=== PATIENT | female | born 1925 | race Caucasian/White ===

== ENCOUNTER 2016-06-11 18:35 | Inpatient (IN) | payer MEDICARE, MEDICAID ==
[~2016-06-11] VITALS: Ht 162.6 cm; Wt 95.2 kg
[~2016-06-11 18:35] MED LIST: AMLO10TA2 PO; AMLO5TAB4 PO; APIX5TAB PO; BUME1TAB21 PO; CEFT1FRO2 IV; DIGO125T PO; DRON5CAP15 PO; ERGO500017 PO; FENO145T32 PO; FURO-92 PO; FURO-93 PO; GUAI600T22 PO; HYDR-3240 PO; HYDR25TA6 PO; Initiate Coumadin Protocol MC; LEVO125T PO; LEVO750T26 PO; LEVO75TA PO; LISI-167 PO; LISI-170 PO; LISI40TA PO; METO25TA9 PO; METO50TA82 PO; OXYC1TAB7 PO; POTA10TA11 PO; POTA10TA5 PO; POTA20TA6 PO; PRAV40TA2 PO; PRED20TA PO; RIVA10TA PO; SPIR25TA PO; VANC125C2 PO; VANC1VIA3 PO; WARF3TAB PO
[2016-06-11] MEDS ORDERED: PIPERACILLIN/TAZO/PMX 3.375GM 50 ML ONE (19:28)
[2016-06-11] MEDS ORDERED: SODIUM CHLORIDE FLUSH 10ML SYR IVF ONE (19:30)
[2016-06-11] MEDS ORDERED: SODIUM CHLORIDE 0.9% 1,000ML IVBOLUS ONE ×3 (19:30→21:30)
[2016-06-11] MEDS ORDERED: PIPERACILLIN/TAZO/PMX 3.375GM 50 ML IV ONE (19:30)
[2016-06-11 20:02] LABS: ASPARTATE AMINO TRANSFERASE 16 U/L (15-37); BLOOD UREA NITROGEN 42 mg/dL (7-18)
[2016-06-11 20:10] LABS: IS PT STATUS REG ER OR PRE ER? YES
[2016-06-11 20:17] LABS: DIFF TOTAL CELLS COUNTED 200 CELL DIFF; VERIFY COUNTS? YES
[2016-06-11 20:18] LABS: ANISOCYTOSIS 1+; POLYCHROMASIA 1+
[2016-06-11 20:19] LABS: MONOS WITH VACUOLES 1+
[2016-06-11] MEDS ORDERED: ONDANSETRON 2MG/ML, 2ML IVP PRN (22:30)
[2016-06-11 23:30] VITALS: BP 99/51
[2016-06-12] MEDS: SODIUM CHLORIDE 0.9% 1,000 ML IV SCH ×3 (00:02→22:39)
[2016-06-12] MEDS: metroNIDAZOLE 500 MG TABLET PO SCH ×4 (00:03→20:18)
[2016-06-12] MEDS: PRAVASTATIN 40 MG TABLET PO SCH ×2 (00:03→20:18)
[2016-06-12] MEDS: VANCOMYCIN 50 MG/ML ORAL SUSP PO SCH ×5 (00:03→22:38)
[2016-06-12 00:59] VITALS: BP 109/50
[2016-06-12] MEDS: LEVOTHYROXINE 125 MCG TABLET PO SCH (05:06)
[2016-06-12 06:58] LABS: ASPARTATE AMINO TRANSFERASE 16 U/L (15-37); BLOOD UREA NITROGEN 40 mg/dL (7-18)
[2016-06-12 07:34] LABS: DIFF TOTAL CELLS COUNTED 100 CELL DIFF
[2016-06-12 07:37] LABS: ANISOCYTOSIS 1+; VERIFY COUNTS? YES
[2016-06-12 07:38] LABS: MONOS WITH VACUOLES 1+; POLYCHROMASIA 1+
[2016-06-12] MEDS: DIGOXIN 0.125 MG TABLET PO SCH (07:44)
[2016-06-12 08:16] VITALS: BP 91/55
[2016-06-12] MEDS ORDERED: WARFARIN 3 MG TABLET PO-COUM SCH ×2 (09:00→18:00)
[2016-06-12 11:07] VITALS: BP 108/53
[2016-06-12] MEDS ORDERED: METOPROLOL TARTRATE 25 MG TABLET PO ONE (11:30)
[2016-06-12] MEDS: ACETAMINOPHEN 325 MG TABLET PO PRN (11:33)
[2016-06-12] MEDS: MORPHINE SULFATE 4 MG/ML, 1ML IVPush PRN ×3 (13:14→22:38)
[2016-06-12 13:15] VITALS: BP 97/54
[2016-06-12] MEDS ORDERED: MORPHINE SULFATE 4 MG/ML, 1ML IVPush PRN (13:30)
[2016-06-12 20:09] VITALS: BP 101/57
[2016-06-12] MEDS: METOPROLOL SUCCINATE 25 MG TAB.ER.24H PO SCH (20:18)
[2016-06-13] VITALS (7 sets, daily range): BP systolic 90–116; BP diastolic 40–62
[2016-06-13] MEDS: LEVOTHYROXINE 125 MCG TABLET PO SCH (05:08)
[2016-06-13] MEDS: SODIUM CHLORIDE 0.9% 1,000 ML IV SCH ×2 (05:08→11:50)
[2016-06-13] MEDS: VANCOMYCIN 50 MG/ML ORAL SUSP PO SCH ×4 (05:08→22:43)
[2016-06-13 06:14] LABS: ASPARTATE AMINO TRANSFERASE 17 U/L (15-37); BLOOD UREA NITROGEN 42 mg/dL (7-18)
[2016-06-13 06:30] LABS: DIFF TOTAL CELLS COUNTED 100 CELL DIFF
[2016-06-13 06:32] LABS: VERIFY COUNTS? YES
[2016-06-13 06:33] LABS: ANISOCYTOSIS 1+; POLYCHROMASIA 1+; SCHISTOCYTES 1+
[2016-06-13 06:34] LABS: OVALOCYTES 1+
[2016-06-13] MEDS: DIGOXIN 0.125 MG TABLET PO SCH (08:22)
[2016-06-13] MEDS: METOPROLOL SUCCINATE 25 MG TAB.ER.24H PO SCH ×2 (08:22→19:59)
[2016-06-13] MEDS: metroNIDAZOLE 500 MG TABLET PO SCH (08:22)
[2016-06-13] MEDS: ACETAMINOPHEN 325 MG TABLET PO PRN (10:49)
[2016-06-13] MEDS: MORPHINE SULFATE 4 MG/ML, 1ML IVPush PRN (12:46)
[2016-06-13] MEDS ORDERED: LACTATED RINGERS 1,000 ML IV SCH (13:00)
[2016-06-13] MEDS: METRONIDAZOLE PMX 500MG/100ML 100 ML IV SCH ×2 (16:37→23:59)
[2016-06-13] MEDS: PRAVASTATIN 40 MG TABLET PO SCH (19:59)
[2016-06-14 02:06] VITALS: BP 137/59
[2016-06-14] MEDS: MORPHINE SULFATE 4 MG/ML, 1ML IVPush PRN ×3 (03:38→18:11)
[2016-06-14] MEDS: LEVOTHYROXINE 125 MCG TABLET PO SCH (05:52)
[2016-06-14] MEDS: VANCOMYCIN 50 MG/ML ORAL SUSP PO SCH ×3 (05:52→18:11)
[2016-06-14 06:33] LABS: BLOOD UREA NITROGEN 45 mg/dL (7-18)
[2016-06-14 06:34] LABS: ASPARTATE AMINO TRANSFERASE 9 U/L (15-37)
[2016-06-14 06:42] LABS: DIFF TOTAL CELLS COUNTED 100 CELL DIFF
[2016-06-14 06:43] LABS: ANISOCYTOSIS 1+; VERIFY COUNTS? YES
[2016-06-14 06:44] LABS: POLYCHROMASIA 1+
[2016-06-14 07:21] VITALS: BP 133/53
[2016-06-14] MEDS: METRONIDAZOLE PMX 500MG/100ML 100 ML IV SCH ×2 (10:14→18:11)
[2016-06-14] MEDS: DIGOXIN 0.125 MG TABLET PO SCH (10:52)
[2016-06-14] MEDS: METOPROLOL SUCCINATE 25 MG TAB.ER.24H PO SCH ×2 (10:52→21:55)
[2016-06-14 13:47] VITALS: BP 95/66
[2016-06-14 21:50] VITALS: BP 114/76
[2016-06-14] MEDS: PRAVASTATIN 40 MG TABLET PO SCH (21:55)
[2016-06-15] MEDS: VANCOMYCIN 50 MG/ML ORAL SUSP PO SCH ×4 (01:30→18:52)
[2016-06-15] MEDS: METRONIDAZOLE PMX 500MG/100ML 100 ML IV SCH ×3 (01:31→20:03)
[2016-06-15 01:32] VITALS: BP 92/64
[2016-06-15 06:16] LABS: DIFF TOTAL CELLS COUNTED 100 CELL DIFF
[2016-06-15 06:17] LABS: ANISOCYTOSIS 1+; VERIFY COUNTS? YES
[2016-06-15 06:18] LABS: POLYCHROMASIA 1+
[2016-06-15] MEDS: LEVOTHYROXINE 125 MCG TABLET PO SCH (06:22)
[2016-06-15 06:51] LABS: BLOOD UREA NITROGEN 48 mg/dL (7-18)
[2016-06-15 07:55] VITALS: BP 89/49
[2016-06-15] MEDS: SODIUM CHLORIDE 0.9% 1,000 ML IV SCH ×2 (10:19→20:03)
[2016-06-15 10:20] VITALS: BP 100/65
[2016-06-15] MEDS: METOPROLOL SUCCINATE 25 MG TAB.ER.24H PO SCH ×2 (10:20→20:52)
[2016-06-15] MEDS: MORPHINE SULFATE 4 MG/ML, 1ML IVPush PRN (10:22)
[2016-06-15 12:32] VITALS: BP 108/70
[2016-06-15] MEDS ORDERED: ALBUMIN HUMAN 25% 100 ML IV ONE (13:30)
[2016-06-15] MEDS ORDERED: PHYTONADIONE 5 MG TABLET PO ONE (16:00)
[2016-06-15 20:51] VITALS: BP 93/61
[2016-06-15] MEDS: PRAVASTATIN 40 MG TABLET PO SCH (20:52)
[2016-06-16] MEDS: VANCOMYCIN 50 MG/ML ORAL SUSP PO SCH ×4 (00:37→17:20)
[2016-06-16] MEDS: MORPHINE SULFATE 4 MG/ML, 1ML IVPush PRN ×4 (00:45→23:06)
[2016-06-16 01:56] VITALS: BP 93/62
[2016-06-16] MEDS: METRONIDAZOLE PMX 500MG/100ML 100 ML IV SCH ×3 (04:11→20:06)
[2016-06-16 05:47] LABS: BLOOD UREA NITROGEN 52 mg/dL (7-18)
[2016-06-16] MEDS: LEVOTHYROXINE 125 MCG TABLET PO SCH (05:58)
[2016-06-16 06:44] LABS: DIFF TOTAL CELLS COUNTED 100 CELL DIFF
[2016-06-16 06:49] LABS: ANISOCYTOSIS 1+; OVALOCYTES 1+; POIKILOCYTOSIS 1+; POLYCHROMASIA 1+; VERIFY COUNTS? YES
[2016-06-16 08:43] VITALS: BP 83/62
[2016-06-16] MEDS: METOPROLOL SUCCINATE 25 MG TAB.ER.24H PO SCH ×2 (09:00→20:07)
[2016-06-16] MEDS: SODIUM CHLORIDE 0.9% 1,000 ML IV SCH (09:00)
[2016-06-16 09:25] VITALS: BP 97/65
[2016-06-16] MEDS ORDERED: ALBUMIN HUMAN 25% 100 ML IV ONE (10:00)
[2016-06-16] MEDS: SODIUM BICARB 8.4%,50ML SYR. 75 MEQ in SODIUM CHLORIDE 0.45% 1,000 ML IV SCH ×2 (12:55→20:00)
[2016-06-16 13:07] LABS: PTH INTACT INTERPRETATION ** Comment **
[2016-06-16 13:31] LABS: PARATHYROID HORMONE INTACT 267.2 pg/mL (14-72)
[2016-06-16 13:45] VITALS: BP 87/52
[2016-06-16 15:16] LABS: POTASSIUM,URINE RANDOM 23 mmol/L
[2016-06-16 15:39] VITALS: BP 97/60
[2016-06-16 18:52] VITALS: BP 98/59
[2016-06-16] MEDS: PRAVASTATIN 40 MG TABLET PO SCH (20:06)
[2016-06-16] MEDS: MIRTAZAPINE 15 MG TABLET PO SCH (20:07)
[2016-06-17] MEDS: VANCOMYCIN 50 MG/ML ORAL SUSP PO SCH ×4 (00:51→18:04)
[2016-06-17 02:00] VITALS: BP 86/55
[2016-06-17] MEDS: SODIUM BICARB 8.4%,50ML SYR. 75 MEQ in SODIUM CHLORIDE 0.45% 1,000 ML IV SCH (04:26)
[2016-06-17] MEDS: METRONIDAZOLE PMX 500MG/100ML 100 ML IV SCH ×3 (04:26→20:27)
[2016-06-17 05:37] LABS: ASPARTATE AMINO TRANSFERASE 17 U/L (15-37); BLOOD UREA NITROGEN 48 mg/dL (7-18)
[2016-06-17] MEDS: LEVOTHYROXINE 125 MCG TABLET PO SCH (05:43)
[2016-06-17 06:48] LABS: DIFF TOTAL CELLS COUNTED 100 CELL DIFF
[2016-06-17 06:51] LABS: ANISOCYTOSIS 1+; POLYCHROMASIA 1+; VERIFY COUNTS? YES
[2016-06-17 06:52] LABS: OVALOCYTES 1+; POIKILOCYTOSIS 1+
[2016-06-17 07:06] VITALS: BP 93/63
[2016-06-17] MEDS: METOPROLOL SUCCINATE 25 MG TAB.ER.24H PO SCH ×2 (07:41→20:27)
[2016-06-17] MEDS: MORPHINE SULFATE 4 MG/ML, 1ML IVPush PRN (10:21)
[2016-06-17 13:18] VITALS: BP 96/70
[2016-06-17] MEDS: WARFARIN 3 MG TABLET PO-COUM SCH (18:03)
[2016-06-17 18:51] VITALS: BP 85/51
[2016-06-17 20:27] VITALS: BP 95/66
[2016-06-17] MEDS: PRAVASTATIN 40 MG TABLET PO SCH (20:27)
[2016-06-17] MEDS: MIRTAZAPINE 15 MG TABLET PO SCH (20:27)
[2016-06-18 00:17] VITALS: BP 95/67
[2016-06-18] MEDS: VANCOMYCIN 50 MG/ML ORAL SUSP PO SCH ×4 (00:43→18:11)
[2016-06-18] MEDS: METRONIDAZOLE PMX 500MG/100ML 100 ML IV SCH ×3 (04:05→20:02)
[2016-06-18] MEDS: LEVOTHYROXINE 125 MCG TABLET PO SCH (05:34)
[2016-06-18 05:49] LABS: BLOOD UREA NITROGEN 43 mg/dL (7-18)
[2016-06-18 07:52] LABS: DIFF TOTAL CELLS COUNTED 100 CELL DIFF
[2016-06-18 07:54] LABS: VERIFY COUNTS? YES
[2016-06-18 07:55] LABS: ANISOCYTOSIS 1+; POLYCHROMASIA 1+
[2016-06-18 08:18] VITALS: BP 95/64
[2016-06-18] MEDS: METOPROLOL SUCCINATE 25 MG TAB.ER.24H PO SCH ×2 (08:18→20:02)
[2016-06-18 14:23] VITALS: BP 98/54
[2016-06-18] MEDS: WARFARIN 3 MG TABLET PO-COUM SCH (18:11)
[2016-06-18 19:46] VITALS: BP 97/56
[2016-06-18] MEDS: MIRTAZAPINE 15 MG TABLET PO SCH (20:02)
[2016-06-18] MEDS: PRAVASTATIN 40 MG TABLET PO SCH (20:02)
[2016-06-19] MEDS: VANCOMYCIN 50 MG/ML ORAL SUSP PO SCH ×4 (00:25→18:26)
[2016-06-19 01:13] VITALS: BP 120/40
[2016-06-19] MEDS: METRONIDAZOLE PMX 500MG/100ML 100 ML IV SCH ×3 (03:33→20:20)
[2016-06-19] MEDS: LEVOTHYROXINE 125 MCG TABLET PO SCH (05:36)
[2016-06-19 05:42] LABS: BLOOD UREA NITROGEN 42 mg/dL (7-18)
[2016-06-19 06:13] LABS: DIFF TOTAL CELLS COUNTED 100 CELL DIFF
[2016-06-19 06:16] LABS: ANISOCYTOSIS 1+; VERIFY COUNTS? YES
[2016-06-19 06:17] LABS: POLYCHROMASIA 1+
[2016-06-19 07:45] VITALS: BP 81/53
[2016-06-19] MEDS: METOPROLOL SUCCINATE 25 MG TAB.ER.24H PO SCH (09:00)
[2016-06-19 09:05] VITALS: BP 91/53
[2016-06-19 10:42] VITALS: BP 103/68
[2016-06-19] MEDS ORDERED: SODIUM CHLORIDE 0.9%, 250ML IVBOLUS ONE (12:00)
[2016-06-19 14:15] VITALS: BP 101/67
[2016-06-19] MEDS: SODIUM CHLORIDE 0.9% 1,000 ML IV SCH (16:55)
[2016-06-19] MEDS: HYDROCORTISONE 100 MG INJ. IVPush SCH ×2 (16:55→23:41)
[2016-06-19] MEDS ORDERED: WARFARIN 2.5 MG TABLET PO-COUM ONE (18:00)
[2016-06-19 18:56] VITALS: BP 103/67
[2016-06-19] MEDS: MIRTAZAPINE 15 MG TABLET PO SCH (20:20)
[2016-06-19] MEDS: PRAVASTATIN 40 MG TABLET PO SCH (20:21)
[2016-06-20] MEDS: VANCOMYCIN 50 MG/ML ORAL SUSP PO SCH ×4 (00:05→17:32)
[2016-06-20 02:09] VITALS: BP 92/55
[2016-06-20] MEDS: SODIUM CHLORIDE 0.9% 1,000 ML IV SCH ×2 (03:52→15:43)
[2016-06-20] MEDS: METRONIDAZOLE PMX 500MG/100ML 100 ML IV SCH ×3 (03:52→19:53)
[2016-06-20] MEDS: LEVOTHYROXINE 125 MCG TABLET PO SCH (05:39)
[2016-06-20] MEDS: HYDROCORTISONE 100 MG INJ. IVPush SCH ×3 (05:39→17:32)
[2016-06-20 06:01] LABS: ASPARTATE AMINO TRANSFERASE 17 U/L (15-37); BLOOD UREA NITROGEN 44 mg/dL (7-18)
[2016-06-20 07:33] VITALS: BP 104/77
[2016-06-20 13:44] VITALS: BP 109/70
[2016-06-20] MEDS: PRAVASTATIN 40 MG TABLET PO SCH (19:59)
[2016-06-20] MEDS: MIRTAZAPINE 15 MG TABLET PO SCH (19:59)
[2016-06-20 20:29] VITALS: BP 136/80
[2016-06-21] MEDS: HYDROCORTISONE 100 MG INJ. IVPush SCH ×5 (00:02→23:13)
[2016-06-21] MEDS: VANCOMYCIN 50 MG/ML ORAL SUSP PO SCH ×4 (00:02→17:44)
[2016-06-21 01:29] VITALS: BP 134/79
[2016-06-21] MEDS: METRONIDAZOLE PMX 500MG/100ML 100 ML IV SCH ×3 (04:29→20:14)
[2016-06-21] MEDS: SODIUM CHLORIDE 0.9% 1,000 ML IV SCH ×2 (04:33→17:05)
[2016-06-21 05:40] LABS: BLOOD UREA NITROGEN 49 mg/dL (7-18)
[2016-06-21] MEDS ORDERED: PHYTONADIONE 5 MG TABLET PO ONE (06:00)
[2016-06-21] MEDS: LEVOTHYROXINE 125 MCG TABLET PO SCH (06:04)
[2016-06-21 07:41] VITALS: BP 130/86
[2016-06-21] MEDS: METOPROLOL TARTRATE 25 MG TABLET PO SCH ×2 (10:49→20:15)
[2016-06-21 12:30] VITALS: BP 118/88
[2016-06-21 19:26] VITALS: BP 130/84
[2016-06-21] MEDS: SODIUM BICARBONATE 650 MG TABLET PO SCH (20:15)
[2016-06-21] MEDS: PRAVASTATIN 40 MG TABLET PO SCH (20:15)
[2016-06-21] MEDS: MIRTAZAPINE 15 MG TABLET PO SCH (20:15)
[2016-06-21] MEDS: DRONABINOL 5 MG CAPSULE PO SCH (20:18)
[2016-06-22] MEDS: VANCOMYCIN 50 MG/ML ORAL SUSP PO SCH ×4 (00:51→17:50)
[2016-06-22 01:37] VITALS: BP 119/79
[2016-06-22] MEDS: METRONIDAZOLE PMX 500MG/100ML 100 ML IV SCH ×2 (03:55→13:11)
[2016-06-22] MEDS: LEVOTHYROXINE 125 MCG TABLET PO SCH (05:47)
[2016-06-22] MEDS: HYDROCORTISONE 100 MG INJ. IVPush SCH ×3 (05:52→22:20)
[2016-06-22] MEDS: SODIUM CHLORIDE 0.9% 1,000 ML IV SCH ×2 (05:53→17:56)
[2016-06-22 07:30] LABS: BLOOD UREA NITROGEN 51 mg/dL (7-18)
[2016-06-22 08:01] LABS: DIFF TOTAL CELLS COUNTED 100 CELL DIFF
[2016-06-22 08:05] LABS: ANISOCYTOSIS 1+; VERIFY COUNTS? YES
[2016-06-22 09:15] VITALS: BP 130/75
[2016-06-22] MEDS: DRONABINOL 5 MG CAPSULE PO SCH ×2 (09:45→22:21)
[2016-06-22] MEDS: SODIUM BICARBONATE 650 MG TABLET PO SCH ×2 (09:45→22:21)
[2016-06-22] MEDS: METOPROLOL TARTRATE 25 MG TABLET PO SCH ×2 (09:45→22:21)
[2016-06-22 10:23] LABS: OCCBLD OBC PASS
[2016-06-22 15:36] VITALS: BP 129/84
[2016-06-22] MEDS ORDERED: WARFARIN 1 MG TABLET PO-COUM SCH (18:00)
[2016-06-22 19:34] VITALS: BP 104/66
[2016-06-22] MEDS: MIRTAZAPINE 15 MG TABLET PO SCH (22:21)
[2016-06-22] MEDS: PRAVASTATIN 40 MG TABLET PO SCH (22:21)
[2016-06-22] MEDS: MORPHINE SULFATE 4 MG/ML, 1ML IVPush PRN (22:47)
[2016-06-23 01:06] VITALS: BP 115/75
[2016-06-23] MEDS: VANCOMYCIN 50 MG/ML ORAL SUSP PO SCH ×4 (01:22→18:47)
[2016-06-23 04:54] LABS: BLOOD UREA NITROGEN 59 mg/dL (7-18)
[2016-06-23 05:27] LABS: DIFF TOTAL CELLS COUNTED 100 CELL DIFF
[2016-06-23 05:28] LABS: VERIFY COUNTS? YES
[2016-06-23 05:29] LABS: ANISOCYTOSIS 1+; OVALOCYTES 1+; POIKILOCYTOSIS 1+
[2016-06-23 05:30] LABS: ECHINOCYTES 1+
[2016-06-23 05:31] LABS: MONOS WITH VACUOLES 1+
[2016-06-23] MEDS: LEVOTHYROXINE 125 MCG TABLET PO SCH (05:40)
[2016-06-23 06:56] VITALS: BP 121/85
[2016-06-23] MEDS: SODIUM CHLORIDE 0.9% 1,000 ML IV SCH (08:20)
[2016-06-23] MEDS: METOPROLOL TARTRATE 25 MG TABLET PO SCH ×2 (08:46→20:58)
[2016-06-23] MEDS: SODIUM BICARBONATE 650 MG TABLET PO SCH ×2 (08:47→20:58)
[2016-06-23] MEDS: HYDROCORTISONE 100 MG INJ. IVPush SCH ×2 (08:49→20:58)
[2016-06-23] MEDS: DRONABINOL 5 MG CAPSULE PO SCH (08:49)
[2016-06-23 13:49] VITALS: BP 115/66
[2016-06-23 14:43] VITALS: BP 105/70
[2016-06-23] MEDS ORDERED: FUROSEMIDE 40 MG/4 ML IV ONE (15:00)
[2016-06-23] MEDS ORDERED: WARFARIN 1 MG TABLET PO-COUM SCH (18:00)
[2016-06-23 18:45] VITALS: BP 109/70
[2016-06-23 20:37] VITALS: BP 126/61
[2016-06-23] MEDS: MIRTAZAPINE 15 MG TABLET PO SCH (20:59)
[2016-06-24] VITALS (8 sets, daily range): BP systolic 100–128; BP diastolic 59–84
[2016-06-24] MEDS: PRAVASTATIN 40 MG TABLET PO SCH ×2 (01:27→22:02)
[2016-06-24] MEDS: VANCOMYCIN 50 MG/ML ORAL SUSP PO SCH ×4 (01:27→22:02)
[2016-06-24 06:10] LABS: BLOOD UREA NITROGEN 65 mg/dL (7-18)
[2016-06-24 06:33] LABS: DIFF TOTAL CELLS COUNTED 100 CELL DIFF
[2016-06-24 06:34] LABS: ANISOCYTOSIS 1+; VERIFY COUNTS? YES
[2016-06-24 06:36] LABS: POLYCHROMASIA 1+
[2016-06-24] MEDS: LEVOTHYROXINE 125 MCG TABLET PO SCH (09:06)
[2016-06-24] MEDS: METOPROLOL TARTRATE 25 MG TABLET PO SCH ×2 (09:06→21:00)
[2016-06-24] MEDS: SODIUM BICARBONATE 650 MG TABLET PO SCH ×2 (09:06→18:22)
[2016-06-24] MEDS: HYDROCORTISONE 100 MG INJ. IVPush SCH (09:07)
[2016-06-24] MEDS ORDERED: PANTOPRAZOLE 80 MG in SODIUM CHLORIDE 0.9% 50 ML IV ONE (17:30)
[2016-06-24] MEDS ORDERED: FUROSEMIDE 40 MG/4 ML IV ONE (19:00)
[2016-06-24] MEDS ORDERED: HYDROCORTISONE 100 MG INJ. IVPush SCH (21:00)
[2016-06-24] MEDS: MIRTAZAPINE 15 MG TABLET PO SCH (22:02)
[2016-06-25] VITALS (22 sets, daily range): BP systolic 93–122; BP diastolic 50–90
[2016-06-25] MEDS: PANTOPRAZOLE 80 MG in SODIUM CHLORIDE 0.9% 100 ML IV SCH ×2 (00:05→17:32)
[2016-06-25] MEDS: VANCOMYCIN 50 MG/ML ORAL SUSP PO SCH ×4 (04:37→23:53)
[2016-06-25 06:27] LABS: ASPARTATE AMINO TRANSFERASE 36 U/L (15-37); BLOOD UREA NITROGEN 66 mg/dL (7-18)
[2016-06-25] MEDS: LEVOTHYROXINE 125 MCG TABLET PO SCH (06:46)
[2016-06-25] MEDS: METOPROLOL TARTRATE 25 MG TABLET PO SCH ×2 (09:00→22:06)
[2016-06-25] MEDS ORDERED: CEFTRIAXONE PMX 1GM/50ML 50 ML IV SCH (09:00)
[2016-06-25] MEDS ORDERED: HYDROCORTISONE 100 MG INJ. IVPush SCH (09:00)
[2016-06-25] MEDS: SODIUM BICARBONATE 650 MG TABLET PO SCH ×3 (09:12→17:31)
[2016-06-25] MEDS: FUROSEMIDE 20 MG/2 ML IV SCH ×2 (11:35→22:06)
[2016-06-25] MEDS: MIRTAZAPINE 15 MG TABLET PO SCH (22:06)
[2016-06-25] MEDS: PRAVASTATIN 40 MG TABLET PO SCH (22:06)
[2016-06-26] VITALS (8 sets, daily range): BP systolic 113–136; BP diastolic 70–87
[2016-06-26] MEDS: PANTOPRAZOLE 80 MG in SODIUM CHLORIDE 0.9% 100 ML IV SCH ×2 (03:37→13:30)
[2016-06-26] MEDS: LEVOTHYROXINE 125 MCG TABLET PO SCH (06:04)
[2016-06-26] MEDS: VANCOMYCIN 50 MG/ML ORAL SUSP PO SCH ×3 (06:05→22:27)
[2016-06-26 06:25] LABS: BLOOD UREA NITROGEN 58 mg/dL (7-18)
[2016-06-26 07:01] LABS: DIFF TOTAL CELLS COUNTED 100 CELL DIFF
[2016-06-26 07:04] LABS: VERIFY COUNTS? YES
[2016-06-26 07:05] LABS: ANISOCYTOSIS 1+; ECHINOCYTES 1+; OVALOCYTES 1+; POIKILOCYTOSIS 1+; POLYCHROMASIA 1+
[2016-06-26] MEDS: SODIUM BICARBONATE 650 MG TABLET PO SCH ×3 (08:00→17:00)
[2016-06-26] MEDS ORDERED: DEXTROSE 5% 1,000 ML IV SCH (10:00)
[2016-06-26] MEDS ORDERED: PHARMACY MAY ADJ FOR RENAL FX MC PRN ×2 (10:30→17:00)
[2016-06-26] MEDS ORDERED: VANCOMYCIN PER PHARMACY MC PRN (10:30)
[2016-06-26] MEDS ORDERED: PHARMACOKINETIC CONSULTATION MC ONE (11:00)
[2016-06-26] MEDS ORDERED: VANCOMYCIN 1,900 MG in SODIUM CHLORIDE 0.9% 250 ML IV SCH (11:00)
[2016-06-26] MEDS ORDERED: PHARMACOKINETIC MONITORING MC PRN (11:00)
[2016-06-26] MEDS: PIPERACILLIN/TAZO/PMX 3.375GM 50 ML IV SCH ×2 (13:23→22:26)
[2016-06-26] MEDS: METOPROLOL TARTRATE 25 MG TABLET PO SCH ×2 (13:24→22:26)
[2016-06-26] MEDS: FUROSEMIDE 20 MG/2 ML IV SCH ×2 (13:37→22:28)
[2016-06-26 18:54] LABS: DIFF TOTAL CELLS COUNTED 100 CELL DIFF
[2016-06-26 18:56] LABS: ANISOCYTOSIS 1+; POLYCHROMASIA 1+; VERIFY COUNTS? YES
[2016-06-26 18:57] LABS: MICROCYTOSIS 1+
[2016-06-26 18:58] LABS: OVALOCYTES 1+
[2016-06-26 19:19] LABS: CREATININE CLEARANCE,URINE 20.7 (70.0-140.0)
[2016-06-26] MEDS: FLUCONAZOLE 200 MG/100 ML 100 ML IV SCH (21:00)
[2016-06-26] MEDS: PRAVASTATIN 40 MG TABLET PO SCH (22:26)
[2016-06-26] MEDS: FAMOTIDINE 20 MG/2 ML IVPush SCH (22:26)
[2016-06-26] MEDS: MIRTAZAPINE 15 MG TABLET PO SCH (22:26)
[2016-06-27] VITALS (19 sets, daily range): BP systolic 81–132; BP diastolic 44–68
[2016-06-27] MEDS: POTASSIUM CHLORIDE 40 MEQ in DEXTROSE 5% 1,000 ML IV SCH ×2 (04:00→09:51)
[2016-06-27] MEDS: VANCOMYCIN 50 MG/ML ORAL SUSP PO SCH ×3 (04:48→15:31)
[2016-06-27] MEDS: LEVOTHYROXINE 125 MCG TABLET PO SCH (06:00)
[2016-06-27 06:06] LABS: BLOOD UREA NITROGEN 53 mg/dL (7-18)
[2016-06-27] MEDS: PIPERACILLIN/TAZO/PMX 3.375GM 50 ML IV SCH ×2 (06:28→15:56)
[2016-06-27] MEDS: SODIUM BICARBONATE 650 MG TABLET PO SCH ×3 (08:00→15:31)
[2016-06-27] MEDS: METOPROLOL TARTRATE 25 MG TABLET PO SCH (09:00)
[2016-06-27] MEDS: FUROSEMIDE 20 MG/2 ML IV SCH ×2 (09:00→20:57)
[2016-06-27] MEDS: FAMOTIDINE 20 MG/2 ML IVPush SCH ×2 (09:51→20:56)
[2016-06-27] MEDS ORDERED: methylPREDNISolone SOD SUCC 125 MG/2 ML IVPush STA (14:06)
[2016-06-27 15:07] LABS: BLOOD UREA NITROGEN 48 mg/dL (7-18)
[2016-06-27] MEDS: METRONIDAZOLE PMX 500MG/100ML 100 ML IV SCH (20:56)
[2016-06-27] MEDS: FLUCONAZOLE 200 MG/100 ML 100 ML IV SCH (22:23)
[2016-06-28] VITALS (10 sets, daily range): BP systolic 87–114; BP diastolic 38–65
[2016-06-28] MEDS: PIPERACILLIN/TAZO/PMX 3.375GM 50 ML IV SCH ×3 (01:29→18:33)
[2016-06-28] MEDS: METRONIDAZOLE PMX 500MG/100ML 100 ML IV SCH ×3 (05:00→23:55)
[2016-06-28 05:14] LABS: BLOOD UREA NITROGEN 46 mg/dL (7-18)
[2016-06-28] MEDS: VANCOMYCIN 1,900 MG in SODIUM CHLORIDE 0.9% 250 ML IV SCH (06:45)
[2016-06-28] MEDS: LEVOTHYROXINE 100 MCG INJ IVPush SCH (08:52)
[2016-06-28] MEDS: FAMOTIDINE 20 MG/2 ML IVPush SCH (08:52)
[2016-06-28] MEDS: FUROSEMIDE 20 MG/2 ML IV SCH (08:52)
[2016-06-28] MEDS: POTASSIUM CHLORIDE 40 MEQ in DEXTROSE 5% 1,000 ML IV SCH ×2 (10:08→23:55)
[2016-06-28] MEDS ORDERED: methylPREDNISolone SOD SUCC 125 MG/2 ML IVPush ONE (18:30)
[2016-06-29] VITALS (18 sets, daily range): BP systolic 59–122; BP diastolic 35–89
[2016-06-29] MEDS: FLUCONAZOLE 200 MG/100 ML 100 ML IV SCH ×2 (00:05→21:21)
[2016-06-29] MEDS: FAMOTIDINE 20 MG/2 ML IVPush SCH ×2 (00:05→09:13)
[2016-06-29] MEDS: FUROSEMIDE 20 MG/2 ML IV SCH ×3 (01:03→21:00)
[2016-06-29] MEDS ORDERED: FUROSEMIDE 20 MG/2 ML IV ONE (03:00)
[2016-06-29] MEDS ORDERED: SODIUM CHLORIDE 0.9% 1,000ML IVBOLUS ONE (03:00)
[2016-06-29] MEDS: PIPERACILLIN/TAZO/PMX 3.375GM 50 ML IV SCH ×4 (03:38→22:39)
[2016-06-29] MEDS ORDERED: SODIUM CHLORIDE 0.9% 500 ML IV SCH (05:30)
[2016-06-29] MEDS ORDERED: NOREPINEPHRINE 4 MG in SODIUM CHLORIDE 0.9% 246 ML IV PRN (05:30)
[2016-06-29 05:40] LABS: BLOOD UREA NITROGEN 57 mg/dL (7-18)
[2016-06-29] MEDS: METRONIDAZOLE PMX 500MG/100ML 100 ML IV SCH ×3 (06:20→20:37)
[2016-06-29] MEDS: PHYTONADIONE 10 MG/ML, 1ML SQ SCH (08:17)
[2016-06-29] MEDS: LEVOTHYROXINE 100 MCG INJ IVPush SCH (09:14)
[2016-06-29] MEDS: POTASSIUM CHLORIDE 40 MEQ in DEXTROSE 5% 1,000 ML IV SCH (09:14)
[2016-06-29] MEDS ORDERED: POTASSIUM CHLORIDE 40 MEQ in DEXTROSE 5% 1,000 ML IV SCH (09:30)
[2016-06-29] MEDS: PANTOPRAZOLE 80 MG in SODIUM CHLORIDE 0.9% 100 ML IV SCH ×2 (12:45→20:36)
[2016-06-29] MEDS ORDERED: AMIODARONE 900 MG in DEXTROSE 5% 482 ML IV PRN (13:00)
[2016-06-29] MEDS ORDERED: AMIODARONE 150 MG in DEXTROSE 5% 100 ML IV ONE (13:00)
[2016-06-29] MEDS ORDERED: FILTER 0.22 MICRON IV PRN (13:00)
[2016-06-29] MEDS ORDERED: HEPARIN 1,000 UNITS/ML, 10ML ONE (13:08)
[2016-06-29] MEDS ORDERED: DIGOXIN 0.25 MG/ML, 2ML IVPush ONE (15:30)
[2016-06-29] MEDS: POTASSIUM CHLORIDE 20 MEQ in DEXTROSE 5% 1,000 ML IV SCH (16:29)
[2016-06-29] MEDS ORDERED: LORazepam 2 MG/ML, 1ML IVPush ONE (16:30)
[2016-06-29] MEDS ORDERED: OMNIPAQUE 350 MG/ML, 100ML BOTTLE ONE (17:26)
[2016-06-29] MEDS: VANCOMYCIN 1,900 MG in SODIUM CHLORIDE 0.9% 250 ML IV SCH (18:45)
[2016-06-29] MEDS: MORPHINE SULFATE 4 MG/ML, 1ML IVPush PRN (20:01)
[2016-06-29] MEDS ORDERED: VASOPRESSIN 100 UNIT in SODIUM CHLORIDE 0.9% 495 ML IV PRN (22:30)
[2016-06-30] MEDS: NOREPINEPHRINE 8 MG in SODIUM CHLORIDE 0.9% 242 ML IV PRN ×3 (00:32→08:57)
[2016-06-30] MEDS: POTASSIUM CHLORIDE 20 MEQ in DEXTROSE 5% 1,000 ML IV SCH (00:32)
[2016-06-30 00:52] VITALS: BP 120/86
[2016-06-30 01:03] VITALS: BP 96/79
[2016-06-30 01:15] VITALS: BP 99/60
[2016-06-30] MEDS ORDERED: AMIODARONE 150 MG in DEXTROSE 5% 100 ML IV ONE (01:30)
[2016-06-30] MEDS ORDERED: AMIODARONE 900 MG in DEXTROSE 5% 482 ML IV PRN (01:30)
[2016-06-30] MEDS ORDERED: FILTER 0.22 MICRON IV PRN (01:30)
[2016-06-30 02:30] VITALS: BP 127/100
[2016-06-30 03:00] VITALS: BP 116/58
[2016-06-30] MEDS: METRONIDAZOLE PMX 500MG/100ML 100 ML IV SCH (04:09)
[2016-06-30 06:14] LABS: DIFF TOTAL CELLS COUNTED 100 CELL DIFF
[2016-06-30 06:16] LABS: VERIFY COUNTS? YES
[2016-06-30 06:17] LABS: ANISOCYTOSIS 1+
[2016-06-30] MEDS ORDERED: ALBUMIN HUMAN 25% 100 ML IV SCH (07:00)
[2016-06-30] MEDS: PIPERACILLIN/TAZO/PMX 3.375GM 50 ML IV SCH (08:01)
[2016-06-30 08:15] LABS: BLOOD UREA NITROGEN 57 mg/dL (7-18)
[2016-06-30 08:16] LABS: ASPARTATE AMINO TRANSFERASE 38 U/L (15-37)
[2016-06-30] MEDS ORDERED: SODIUM CHLORIDE 0.9% 1,000 ML IV SCH (08:30)
[2016-06-30] MEDS: PHYTONADIONE 10 MG/ML, 1ML SQ SCH (08:45)
[2016-06-30] MEDS: LEVOTHYROXINE 100 MCG INJ IVPush SCH (08:47)
[2016-06-30] MEDS ORDERED: MAGNESIUM SULFATE PMX 4GM/100M 100 ML IV ONE (09:30)
[2016-06-30] MEDS: PANTOPRAZOLE 80 MG in SODIUM CHLORIDE 0.9% 100 ML IV SCH (10:38)
[2016-06-30] MEDS ORDERED: SODIUM BICARBONATE 650 MG TABLET PO SCH (12:00)
[2016-06-30] MEDS ORDERED: LORazepam 2 MG/ML, 1ML IV PRN (15:30)
[2016-06-30] MEDS ORDERED: ATROPINE OPHTH SOLN 1%, 2ML PO PRN (15:30)
[2016-07-01] MEDS ORDERED: VANCOMYCIN 1,900 MG in SODIUM CHLORIDE 0.9% 250 ML IV SCH (18:00)
[2016-07-03 20:06] LABS: HELICOBACTER PYLORI IGG <0.4 U/mL (0.0-0.8); HELICOBACTER PYLORI IGM <9.0 units (0.0-8.9)
== END 2016-07-01 10:57 | disposition expired | DRG 871 ==
LOC: ED 19:06 → EDIP 21:46 → 4WST 23:05 → CCU 06-29 01:30 → 3NW 06-30 20:25
PROVIDERS: ADMIT Internal Medicine; ATTEND Internal Medicine
PROC: 0T9B70Z Drainage of Bladder with Drainage Device, Via Natural or Artificial Opening (ICD-10-PCS; 2016-06-11)
PROC: 30233K1 Transfusion of Nonautologous Frozen Plasma into Peripheral Vein, Percutaneous Approach (ICD-10-PCS; 2016-06-24)
PROC: 30233K1 Transfusion of Nonautologous Frozen Plasma into Peripheral Vein, Percutaneous Approach (ICD-10-PCS; 2016-06-25)
PROC: 30233N1 Transfusion of Nonautologous Red Blood Cells into Peripheral Vein, Percutaneous Approach (ICD-10-PCS; 2016-06-25)
PROC: 30233K1 Transfusion of Nonautologous Frozen Plasma into Peripheral Vein, Percutaneous Approach (ICD-10-PCS; 2016-06-26)
PROC: 30233K1 Transfusion of Nonautologous Frozen Plasma into Peripheral Vein, Percutaneous Approach (ICD-10-PCS; 2016-06-27)
PROC: 30233N1 Transfusion of Nonautologous Red Blood Cells into Peripheral Vein, Percutaneous Approach (ICD-10-PCS; 2016-06-28)
PROC: 05HM33Z Insertion of Infusion Device into Right Internal Jugular Vein, Percutaneous Approach (ICD-10-PCS; principal; 2016-06-29)
PROC: 30233N1 Transfusion of Nonautologous Red Blood Cells into Peripheral Vein, Percutaneous Approach (ICD-10-PCS; 2016-06-29)
PROC: 30233K1 Transfusion of Nonautologous Frozen Plasma into Peripheral Vein, Percutaneous Approach (ICD-10-PCS; 2016-06-29)
PROC: 30233N1 Transfusion of Nonautologous Red Blood Cells into Peripheral Vein, Percutaneous Approach (ICD-10-PCS; 2016-06-30)
DX: A41.9 Sepsis, unspecified organism (principal); R65.21 Severe sepsis with septic shock; E43 Unspecified severe protein-calorie malnutrition; N17.0 Acute kidney failure with tubular necrosis; G93.41 Metabolic encephalopathy; J18.9 Pneumonia, unspecified organism; E87.2 Acidosis; J96.10 Chronic respiratory failure, unspecified whether with hypoxia or hypercapnia; I13.0 Hypertensive heart and chronic kidney disease with heart failure and stage 1 through stage 4 chronic kidney disease, or unspecified chronic kidney disease; A04.7 Enterocolitis due to Clostridium difficile; R18.8 Other ascites; E87.1 Hypo-osmolality and hyponatremia; D68.69 Other thrombophilia; E87.0 Hyperosmolality and hypernatremia; I50.42 Chronic combined systolic (congestive) and diastolic (congestive) heart failure; N39.0 Urinary tract infection, site not specified; D62 Acute posthemorrhagic anemia; S42.202A Unspecified fracture of upper end of left humerus, initial encounter for closed fracture; N18.3 Chronic kidney disease, stage 3 (moderate); I48.2 Chronic atrial fibrillation; F32.9 Major depressive disorder, single episode, unspecified; I25.10 Atherosclerotic heart disease of native coronary artery without angina pectoris; E78.5 Hyperlipidemia, unspecified; E55.9 Vitamin D deficiency, unspecified; Z96.651 Presence of right artificial knee joint; D50.9 Iron deficiency anemia, unspecified; M19.90 Unspecified osteoarthritis, unspecified site; I35.0 Nonrheumatic aortic (valve) stenosis; Z66 Do not resuscitate; D53.9 Nutritional anemia, unspecified; E89.0 Postprocedural hypothyroidism; E87.6 Hypokalemia; I49.9 Cardiac arrhythmia, unspecified; Z51.5 Encounter for palliative care; E87.5 Hyperkalemia; I25.2 Old myocardial infarction; Z90.49 Acquired absence of other specified parts of digestive tract; Z79.01 Long term (current) use of anticoagulants; Z80.0 Family history of malignant neoplasm of digestive organs; Z95.0 Presence of cardiac pacemaker; Z82.49 Family history of ischemic heart disease and other diseases of the circulatory system; Z68.36 Body mass index [BMI] 36.0-36.9, adult; Z87.440 Personal history of urinary (tract) infections; Z91.81 History of falling
CPT/HCPCS: 36415; 51701; 70450; 71010; 71250; 74000; 74174; 74176; 76770; 78278; 80048; 80053; 80069; 80162; 80202; 81001; 81003; 82272; 82306; 82310; 82330; 82436; 82533; 82570; 82575; 82728; 83540; 83550; 83605; 83735; 83880; 83935; 83970; 84100; 84133; 84145; 84156; 84300; 84443; 84484; 84550; 85014; 85018; 85025; 85610; 85730; 86078; 86677; 86850; 86900; 86923; 87040; 87081; 87086; 87106; 87205; 87324; 87493; 89055; 93005; 96361; 96365; J1644; J1940; J2543; J3370; J3430; J3480; J7060; J7070; P9047; Q0167; Q9967; A9560; C9113; C9898; J0282; J1160; J1450; J1720; J2060; J2270; J2930; J3475; J7030; J7040; J7050; J7120; P9016; P9017; P9612; S0028